=== PATIENT | female | born 1960 | race Caucasian/White ===

== ENCOUNTER 2016-09-25 11:15 | Emergency (ER) | payer OTHER, BC ==
[~2016-09-25] VITALS: Ht 165.1 cm; Wt 75.3 kg
[~2016-09-25 11:15] MED LIST: ALBUTEROL SULF8.5 GM IH; COMPAZINE10 MG PO; DILAUDID2 MG PO; ESCITALOPRAM OX10 MG PO; ESCITALOPRAM OX20 MG PO; ESTRADIOL0.5 MG PO; FLEXERIL5 MG PO; KEFLEX500 MG PO; NIGHTTIME COLD PO; NORCO 5/3251 TABLET PO; OXYCODONE HCL15 MG PO; OXYCONTIN30 MG PO; PREDNISONE50 MG PO; PROAIR HFA8.5 GM IH; SIMVASTATIN PO; SIMVASTATIN40 MG PO; VICODIN,LORT1 TABLET PO; ZITHROMAX Z-PA250 MG PO
[2016-09-25 11:23] VITALS: BP 150/98
[2016-09-25] MEDS ORDERED: SIMVASTATIN20 MG PO (12:14)
[2016-09-25] MEDS ORDERED: OXYCODONE HCL15 MG PO (12:14)
[2016-09-25] MEDS ORDERED: OXYCONTIN40 MG PO (12:14)
[2016-09-25] MEDS ORDERED: NAPROSYN500 MG PO (14:43)
== END 2016-09-25 14:52 | disposition home or self-care (01) ==
LOC: EME 11:15
DX: M25.572 Pain in left ankle and joints of left foot (principal); M25.472 Effusion, left ankle; M77.32 Calcaneal spur, left foot; G89.29 Other chronic pain; M54.9 Dorsalgia, unspecified; Z79.891 Long term (current) use of opiate analgesic; Z87.891 Personal history of nicotine dependence
CPT/HCPCS: 73610; 93971; 99281; 99284; J1885

== ENCOUNTER 2017-04-21 16:06 | Inpatient (IN) | payer OTHER, BC ==
[~2017-04-21] VITALS: Ht 165.1 cm; Wt 75.4 kg
[~2017-04-21 16:06] MED LIST changes: +NAPROSYN500 MG PO; +OXYCONTIN40 MG PO; +SIMVASTATIN20 MG PO
[2017-04-22 13:00] VITALS: BP 101/60
[2017-04-22] MEDS ORDERED: PROVENTIL,2.5 MG/0.5 IH (13:29)
[2017-04-22] MEDS ORDERED: COLACE100 MG PO (13:29)
[2017-04-22] MEDS ORDERED: ESTRACE0.5 MG PO (13:30)
[2017-04-22] MEDS ORDERED: DILAUDID2 MG PO (13:31)
[2017-04-22] MEDS ORDERED: DILAUDID4 MG PO (13:32)
[2017-04-22] MEDS ORDERED: MOVANTIK12.5 MG PO (13:33)
[2017-04-22] MEDS ORDERED: SENNA8.6 MG PO (13:34)
[2017-04-22] MEDS ORDERED: OXYCONTIN30 MG PO (13:34)
[2017-04-22] MEDS ORDERED: TYLENOL COLD &1 EACH PO (13:36)
[2017-04-22] MEDS ORDERED: MYCOSTATIN 100,60 ML PO (14:13)
[2017-04-22 16:13] VITALS: BP 113/56
[2017-04-23 00:12] VITALS: BP 105/55
[2017-04-23 05:26] VITALS: BP 105/55
[2017-04-23 05:44] LABS: HEMATOCRIT 23.4 % (36.0-46.0); MCH 29.3 PG (29.0-34.0); MCHC 32.1 G/DL (30.0-36.0); MCV 91.4 FL (83-99); MEAN PLAT.VOLUME 9.6 uM^3 (9.5-12.4); PLATELET COUNT 420 K/uL (156-360); RBC DIS.WIDTH-CV 14.4 % (11.8-14.6); RED BLOOD COUNT 2.56 M/uL (3.80-5.20); WHITE BLOOD COUNT 9.7 K/uL (4.1-10.2)
[2017-04-23 06:08] LABS: ALKALINE PHOSPHATASE 78 IU/L (3-129); ANION GAP 7 MEQ/L (2-14); CHLORIDE 105 MEQ/L (99-109); GFR ESTIMATE (CALCULATED) > 59 mL/min/; GLUCOSE 93 mg/dL (70-99); POTASSIUM 4.7 MEQ/L (3.7-5.4); SAMPLE HEMOLYSIS CHECK 0; SAMPLE ICTERIC CHECK 0; SAMPLE LIPEMIA CHECK 0; SODIUM 141 MEQ/L (136-147); TOTAL BILIRUBIN 0.4 MG/DL (0.0-1.0); UREA NITROGEN (BUN) 13 mg/dL (9-23)
[2017-04-23 15:17] VITALS: BP 101/59
[2017-04-24] VITALS (14 sets, daily range): BP systolic 91–133; BP diastolic 53–65
[2017-04-24 06:20] LABS: HEMATOCRIT 29.1 % (36.0-46.0); MCH 28.3 PG (29.0-34.0); MCV 88.4 FL (83-99); MEAN PLAT.VOLUME 9.4 uM^3 (9.5-12.4); NRBC (%) 0.2 /100 WBC (0-0); PLATELET COUNT 542 K/uL (156-360); RBC DIS.WIDTH-CV 14.9 % (11.8-14.6); RBC DIS.WIDTH-SD 47.8 % (39-53); WHITE BLOOD COUNT 9.8 K/uL (4.1-10.2)
[2017-04-24 06:26] LABS: RED BLOOD COUNT 3.29 M/uL (3.80-5.20)
[2017-04-25 04:30] VITALS: BP 97/63
[2017-04-25 06:16] LABS: MCH 28.3 PG (29.0-34.0); MCHC 32.5 G/DL (30.0-36.0); MEAN PLAT.VOLUME 9.2 uM^3 (9.5-12.4); PLATELET COUNT 538 K/uL (156-360); RBC DIS.WIDTH-CV 14.7 % (11.8-14.6); RED BLOOD COUNT 3.68 M/uL (3.80-5.20); WHITE BLOOD COUNT 9.2 K/uL (4.1-10.2)
[2017-04-25 06:46] LABS: ANION GAP 8 MEQ/L (2-14); CHLORIDE 105 MEQ/L (99-109); GFR ESTIMATE (CALCULATED) > 59 mL/min/; GLUCOSE 93 mg/dL (70-99); POTASSIUM 4.3 MEQ/L (3.7-5.4); SAMPLE HEMOLYSIS CHECK 0; SAMPLE ICTERIC CHECK 0; SAMPLE LIPEMIA CHECK 0; SODIUM 143 MEQ/L (136-147); UREA NITROGEN (BUN) 9 mg/dL (9-23)
[2017-04-25] MEDS ORDERED: FERROUS SULFAT325 MG PO (11:45)
[2017-04-25] MEDS ORDERED: FOLIC ACID1 MG PO (11:45)
[2017-04-25] MEDS ORDERED: LORATADINE10 M2 PO (11:45)
[2017-04-25] MEDS ORDERED: SENNA8.6 MG PO (11:45)
[2017-04-25] MEDS ORDERED: COLACE100 MG PO (11:45)
[2017-04-25] MEDS ORDERED: ASCORBIC ACID500 M3 PO (11:45)
[2017-04-25] MEDS ORDERED: THERAGRAN1 TABLET PO (11:45)
== END 2017-04-25 15:17 | disposition home health service (06) | DRG 945 ==
LOC: 3WEST 16:06
PROVIDERS: Physical Medicine & Rehabilitation Pain Medicine
PROC: F07M0ZZ Range of Motion and Joint Mobility Treatment of Musculoskeletal System - Whole Body (ICD-10-PCS; principal; 2017-04-22)
PROC: 30233N1 Transfusion of Nonautologous Red Blood Cells into Peripheral Vein, Percutaneous Approach (ICD-10-PCS; 2017-04-23)
DX: R53.1 Weakness (principal); R26.2 Difficulty in walking, not elsewhere classified; G89.18 Other acute postprocedural pain; M54.5 Low back pain; M25.552 Pain in left hip; Z48.811 Encounter for surgical aftercare following surgery on the nervous system; Z98.1 Arthrodesis status; B37.0 Candidal stomatitis; D62 Acute posthemorrhagic anemia; E87.6 Hypokalemia; K59.09 Other constipation; Z87.891 Personal history of nicotine dependence
CPT/HCPCS: 80048; 80053; 85027; 86850; 86870; 86900; 86901; 86920; 97110 GO; 97530 GP; 99202; J1940; P9016